=== PATIENT | male | born 1960 | race Caucasian/White ===

== ENCOUNTER → 2018-10-30 | Outpatient (CLI) | payer BC | END | disposition home or self-care (01) | LOC: HKI 12:59 | DX: M16.10 Unilateral primary osteoarthritis, unspecified hip (principal); M25.559 Pain in unspecified hip | CPT/HCPCS: 73502 ==

== ENCOUNTER 2018-11-05 17:03 | Emergency (ER) | payer OTHER, BC | END 2018-11-05 18:06 | disposition home or self-care (01) | LOC: E/R 17:03 | DX: Z48.01 Encounter for change or removal of surgical wound dressing (principal); Z96.641 Presence of right artificial hip joint | CPT/HCPCS: 99281; Z7502 ==